=== PATIENT | male | born 1960 | race Caucasian/White ===

== ENCOUNTER 2018-01-14 09:05 | Outpatient (CLI) | payer OTHER ==
--- NOTE | 2018-01-16 14:46 | MRI Report ---
EXAM: LEFT KNEE MRI WITHOUT CONTRAST EXAM DATE: 01/14/2018 10:16 AM. CLINICAL HISTORY: EFFUSION, LEFT KNEE. COMPARISON: None. TECHNIQUE: Multiplanar, multisequence T1-weighted and fluid-sensitive sequences of the knee without c ontrast. Other: None. FINDINGS: Bones: No fracture or bone lesion. Minimal reactive edema medial compartment. Articular Cartilage: Shallow partial-thickness loss with deep partial thickness fissuring/tearing med ial femoral condyle. Shallow partial-thickness loss lateral compartment. Shallow partial-thickness lo ss and deep partial thickness fissuring/tearing medial and lateral patellar facets. Medial Meniscus: Obliquely oriented radial tear extends to the substance adjacent to the free edge po sterior horn. Degenerative fraying at the junction of the posterior horn and root. Lateral Meniscus: The lateral meniscus is intact. Cruciate Ligaments: The anterior and posterior cruciate ligaments are intact. Collateral Ligaments: Minimal fluid deep to the intact superficial band medial collateral ligament. L ateral collateral ligament normal in appearance. Tendons: The quadriceps, patellar, semimembranosus, and popliteus tendons are unremarkable. Musculature: No edema or fatty atrophy. Other: Small joint effusion. Mild thickening of the suprapatellar plica. Large popliteal cyst with le ak. No loose bodies. The medial and lateral retinacula are intact. The subcutaneous tissues and fat pads are unremarkable. IMPRESSION: 1. Radial tear posterior horn medial meniscus. Degenerative fraying at the junction of the posterior horn and root. 2. Small joint effusion. 3. Large popliteal cyst with leak. 4. 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 RADIA MUSCULOSKELETAL RADIOLOGY SECTION Referring Provider Line: [phone] SITE ID: [id number]
== END 2018-01-14 09:06 | disposition home or self-care (01) ==
LOC: DI 09:05
PROVIDERS: ATTEND Family Medicine
DX: S83.242A Other tear of medial meniscus, current injury, left knee, initial encounter (principal); M25.462 Effusion, left knee; M71.22 Synovial cyst of popliteal space [Baker], left knee; M22.42 Chondromalacia patellae, left knee

== ENCOUNTER 2018-01-16 11:37 | Emergency (ER) | payer OTHER ==
[2018-01-16 11:44] VITALS: BP 131/83
--- NOTE | 2018-01-16 13:12 | ED Physician Documentation ---
PD HPI URI - Stated complaint Stated Complaint: EYE IRRITATION/SINUS CONGEST - Chief complaint Chief Complaint: Heent - History obtained from History obtained from: Patient - History of Present Illness Timing - onset: How many days ago (3-4 days of sinus pressure and congestion and purulent nasal discharge. today awoke with both eyes crusted shut.) Timing details: Gradual onset, Still present Associated symptoms: Nasal congestion, Sinus pain, Other (eyes irritated and marked crusting today.). No: Sore throat, Dry cough, NVD Contributing factors: No: Sick contact Review of Systems Constitutional: denies: Fever Nose: reports: Congestion, Sinus pressure / pain. denies: Rhinorrhea / runny nose Cardiac: denies: Chest pain / pressure Respiratory: denies: Dyspnea, Cough GI: denies: Nausea, Vomiting, Diarrhea Skin: denies: Rash PD PAST MEDICAL HISTORY - Past Medical History Past Medical History: Yes Cardiovascular: Hypertension, Atrial fibrillation - Past Surgical History Past Surgical History: Yes General: Cholecystectomy, Hiatal hernia repair - Present Medications Home Medications: Ambulatory Orders Medication Instructions Recorded Confirmed Atenolol [Tenormin] 25 mg PO DAILY 01/16/18 01/16/18 Dexamethasone [Decadron] 4 mg PO DAILY #5 tablet 01/16/18 Doxycycline Monohydrate 100 mg PO BID #14 tablet 01/16/18 Sulfacetm Na/Prednisol AC 2 drops OP QID #1 bottle 01/16/18 [Blephamide Eye Drops] - Allergies Allergies/Adverse Reactions: Allergies Allergy/AdvReac Type Severity Reaction Status Date / Time No Known Drug Allergies Allergy Verified 01/16/18 11:44 - Social History Does the pt smoke?: No Smoking Status: Never smoker Does the pt drink ETOH?: Yes Does the pt have substance abuse?: No - Immunizations Immunizations are current?: Yes PD ED PE NORMAL - Vitals Vital signs reviewed: Yes - General General: Alert and oriented X 3, No acute distress, Well developed/nourished - HEENT HEENT: PERRL, EOMI (not light sensitive. Both eyes have swelling, redness and discharge. Some sinus tenderness frontal for percussion. ) - Neck Neck: Supple, no meningeal sign, No adenopathy - Cardiac Cardiac: RRR, No murmur - Respiratory Respiratory: Clear bilaterally - Abdomen Abdomen: Soft, Non tender - Neuro Neuro: Alert and oriented X 3, No motor deficit, Normal speech Results - Vitals Vitals: Vital Signs - 24 hr 01/16/18 11:42 Temperature 36.4 C L Heart Rate 65 Respiratory 18 Rate Blood Pressure 131/83 H O2 Saturation 99 Oxygen O2 Source Room air PD MEDICAL DECISION MAKING - ED course Complexity details: considered differential (could be viral, or consider bacterial with sinus and good appearing conjunctivitis. ), d/w patient Departure - Departure Disposition: 01 Home, Self Care Clinical Impression: Sinusitis Qualifiers: Sinusitis location: unspecified location Chronicity: acute Recurrence: non- recurrent Qualified Code(s): J01.90 - Acute sinusitis, unspecified Conjunctivitis, acute, bilateral Qualifiers: Acute conjunctivitis type: unspecified Qualified Code(s): H10.33 - Unspecified acute conjunctivitis, bilateral Condition: Stable Record reviewed to determine appropriate education?: Yes Instructions: ED Conjunctivitis Nonspecific, ED Sinusitis Abx Tx Follow-Up: LESLIE MCDONNELL MD [Primary Care Provider] - Prescriptions: Dexamethasone [Decadron] 4 mg PO DAILY #5 tablet Doxycycline Monohydrate 100 mg PO BID #14 tablet Sulfacetm Na/Prednisol AC [Blephamide Eye Drops] 2 drops OP QID #1 bottle Comments: This may all be viral related to a head cold ulcers affecting the eyes. However there may be bacterial component to the eye redness and discharge and there may be a bacterial component to the sinus infection. Start off with the antibiotic/anti-inflammatory eyedrops every 2 hours while awake the first day and then 4 times a day for the next several days. Also use Decadron anti- inflammatory orally to decrease inflammation in the sinuses. If your sinus component is not improving in the next couple of days, add doxycycline oral antibiotic as well along with probiotics. Discharge Date/Time: 01/16/18 13:30
== END 2018-01-16 13:30 | disposition home or self-care (01) ==
LOC: ED 11:37
DX: J01.90 Acute sinusitis, unspecified (principal); H10.33 Unspecified acute conjunctivitis, bilateral; I10 Essential (primary) hypertension; I48.91 Unspecified atrial fibrillation
CPT/HCPCS: 99283

== ENCOUNTER 2019-03-16 11:15 | Day surgery (SDC) | payer OTHER ==
[2019-03-16] MEDS ORDERED: LACTATED RINGERS 1,000 ML IV ONE (11:19)
[2019-03-16] MEDS ORDERED: CEFAZOLIN SODIUM IN 0.9 % NACL 2 GM/100 ML BAG IV ONE (11:33)
[2019-03-16] MEDS ORDERED: BUPIVACAINE 0.5% PF 10 ML VIAL ONE (12:27)
--- NOTE | 2019-03-16 12:44 | ANESTHESIA ---
Pre-Anesthesia VS, & Labs - Diagnosis left recurrent inguinal hernia - Procedure left inguinal hernia repair Vital Signs: Temp Pulse Resp BP Pulse Ox 36.1 C L 58 L 16 160/99 H 100 03/16/19 11:27 03/16/19 11:27 03/16/19 11:27 03/16/19 11:27 03/16/19 11:27 Height 5 ft 10 in Weight (kg) 72 kg Body Mass Index 22.5 - NPO >8 hours Home Medications and Allergies Home Medications: Ambulatory Orders Sildenafil Citrate [Viagra] 100 mg PO ONCE PRN 03/05/19 Atenolol [Tenormin] 25 mg PO DAILY 01/16/18 Sildenafil Citrate [Viagra] 100 mg PO ONCE PRN 03/05/19 Allergies/Adverse Reactions: Allergies Allergy/AdvReac Type Severity Reaction Status Date / Time No Known Drug Allergies Allergy Verified 01/16/18 11:44 Anes History & Medical History - Anesthetic History Anesthesia Complications: reports: No previous complications - Medical History Cardiovascular: reports: Hypertension, High cholesterol, Arrhythmia Pulmonary: reports: None Gastrointestinal: reports: Hiatal hernia, Other Urinary: reports: None Musculoskeletal: reports: None Endocrine/Autoimmune: reports: None Skin: reports: None Smoking Status: Never smoker - Surgical History General: Cholecystectomy, Colonoscopy, Other Exam General: Alert Dental: WNL Mouth Opening: Greater than 4 Fingerbreadths Neck Mobility: Normal Mallampati classification: II Thyromental Distance: less than 4 cm Respiratory: Lungs clear Cardiovascular: Regular rate, Normal S1, Normal S2 Mental/Cognitive Status: Alert/Oriented X3 Plan Anesthesia Type: General Consent for Procedure(s) Verified and Reviewed: Yes Code Status: Attempt Resuscitation ASA classification: 2-Mild systemic disease Is this case an emergency?: No
[2019-03-16 13:22] LABS: BASOPHILS % (AUTO) 0.4 %; EOSINOPHILS % (AUTO) 0.6 %; HGB - HEMOGLOBIN 13.6 g/dL (14.0-18.0); LYMPHOCYTES # (AUTO) 1.3 10^3/uL (1.5-3.5); LYMPHOCYTES % (AUTO) 26.5 %; MEAN CORPUSCULAR HEMOGLOBIN 35.7 pg (27.0-31.0); MEAN CORPUSCULAR HGB CONC 35.9 g/dL (32.0-36.0); MEAN CORPUSCULAR VOLUME 99.5 fL (80.0-94.0); MEAN PLATELET VOLUME 9.8 fL (7.4-11.4); MONOCYTES # (AUTO) 0.5 10^3/uL (0.0-1.0); MONOCYTES % (AUTO) 10.2 %; NEUTROPHILS % (AUTO) 61.9 %; PLT - PLATELET COUNT 174 10^3/uL (130-450); RED BLOOD COUNT 3.81 10^6/uL (4.70-6.10); RED CELL DISTRIBUTION WIDTH 11.9 % (12.0-15.0); WHITE BLOOD COUNT 4.9 x10^3/uL (4.8-10.8)
[2019-03-16] MEDS ORDERED: BUPIVACAINE 0.5% PF 30 ML VIAL INFIL ONE (13:25)
[2019-03-16] MEDS ORDERED: SODIUM CHLORIDE 0.9% 1,000 ML IV ONE (13:50)
[2019-03-16] MEDS ORDERED: ONDANSETRON 4 MG/2 ML VIAL IVP PRN (14:53)
[2019-03-16] MEDS ORDERED: HYDROmorphone 0.5 MG/0.5 ML SYRINGE IVP PRN (14:53)
[2019-03-16] MEDS ORDERED: HYDROcod/ACETAM 5/325 MG TABLET PO PRN (14:53)
--- NOTE | 2019-03-16 14:53 | OPERATIVE REPORT ---
Operative Report - General Planned Procedure: Recurrent left inguinal herniorrhaphy Pre-Op Diagnosis: Recurrent left inguinal hernia Procedure Performed: Recurrent left direct inguinal herniorrhaphy with mesh Post Op Diagnosis: Recurrent direct left inguinal hernia - Procedure Note Primary Surgeon: Ricardo Resendez MD Anesthesia Provider: Nanci Casillas CRNA Anesthesia Technique: General LMA, Local (30 mL of half percent Marcaine) IV Fluids (mL): 1,500 Estimated Blood Loss (mL): 5 Drain/Tube Type: Other (None.) Complications: None. - Other Other Information/Narrative: OPERATIVE DESCRIPTION/REPORT: After verbal and written informed consent was obtained detailing the risks of infection, bleeding requiring transfusion with its risks, nerve injury, and , and after I met with the patient confirming the surgery and the site of the surgery and after initialing the site of the surgery with a surgical marker, the patient was brought to the operative suite and placed supine on the operating table. Great care was taken to avoid pressure points to prevent pressure necrosis or nerve injury. Monitoring devices were applied along with TEDs and pneumatic compressive stockings (to prevent DVT). The patient received preoperative antibiotics for surgical prophylaxis. Nanci Casillas CRNA sedated and anesthetized the patient for the entire procedure. The patient was prepped and draped in the usual sterile manner. With the patient draped my initials were clearly visible. A "time in" then confirmed that the patient was identified with 3 identifiers (name, date and medical record number), the history and physical was in the chart, the signed consent confirming the procedure was in the chart, the patient was in the correct position, the aforementioned prophylactic measures were in place or given, we had the correct personnel and equipment to complete the procedure and that anesthesia, surgery and nursing were given an opportunuty to express any concerns. With the agreement of everyone in the room, we proceeded with the operation. After the inguinal area was injected with % marcaine, anesthetizing the area, a standard inguinal incision was made and dissection was carried down to the external oblique aponeurosis using a combination of Metzenbaum scissors and Bovie electrocautery. The external oblique aponeurosis was cleared of overlying adherent tissue, and the external ring was delineated. The external oblique was the incised with a scalpel and this incision was carried out to the external ring using Metzenbaum scissors. Having exposed the inguinal canal, the cord structures were from the canal using blunt dissection, and a Roopa drain was placed around the cord structures at the level of the pubic tubercle. This [place] drain was then used to retract the cord structures as needed. Adherent cremasteric muscle was dissected free from the cord using Bovie electrocautery. The cord was then explored using a combination of sharp and blunt dissection, an d no sac was found. The hernia was found coming from the floor of the inguinal canal medial to the inferior epigastric vessels. This was dissected back to the hernia opening. The hernia was inverted back into the abdominal cavity and a medium Coviidien plug (Ref# [id number], Lot# [id number], use by 2023-11-20) inserted into the hernia defect. The plug was secured to the edge of the hernia defect using interrupted 2-0 PDS sutures. This permitted the floor of the inguinal canal to be repaired without the hernia in my way. The Perfix enlay patch was then placed on the floor of the inguinal canal and secured superiorly to the conjoined tendon and inferiorly to the shelving edge of Pouparts ligament using interrupted 2-0 PDS sutures. At the pubic tubercle a 2-0 PDS stitch was used to secure the mesh. The mesh was secured around the cord structures with a 2-0 PDS loosely thus creating a new internal ring. The [place] drain was removed. The wound was then irrigated using sterile saline, and hemostasis was obtained using Bovie electrocautery. The incision in the external oblique was approximated using a 2-0 Vicryl in a running fashion, thus reforming the external ring. The skin incision was approximated with 4-0 Monocryl in a subcuticular fashion. The skin was prepped with benzoin and steristrips were applied. At this point a time out was performed that confirmed that all the counts were correct, the procedure that was performed, the blood loss, the IV fluids administered, and the patients condition. A dressing was then applied. Gentle downward traction ensured that the testes were well seated in the scrotum. Having tolerated the procedure well, the patient was taken to recovery room in good and stable condition. [employer] disclaimer: This document was created in part using voice recognition technology. Because of the inherent limitations of the system ([employer] user manual states that the licensee understands that speech recognition is a statistical process and that recognition errors are inherent in the process), occasional same sounding word substitutions and grammatical errors do occur and persist despite proofreading. Please read this document for context.
[2019-03-16] MEDS ORDERED: HYDROcod/ACETAM 5/325 MG TABLET ONE (15:24)
[2019-03-16 15:44] VITALS: BP 157/88
== END 2019-03-16 11:16 | disposition home or self-care (01) ==
LOC: SDS 11:15
PROVIDERS: ATTEND Surgery
PROC: 0YU60JZ Supplement Left Inguinal Region with Synthetic Substitute, Open Approach (ICD-10-PCS; principal; 2019-03-16 12:15)
DX: K40.91 Unilateral inguinal hernia, without obstruction or gangrene, recurrent (principal); I10 Essential (primary) hypertension
CPT/HCPCS: 36415; 49520; 85025; 85610; A9270; C1781; J0690; J7120